=== PATIENT | male | born 1990 | race Caucasian/White ===

== ENCOUNTER 2020-09-14 09:35 | Emergency (ER) | payer MEDICAID ==
[~2020-09-14] VITALS: Ht 170.2 cm; Wt 68.0 kg
[2020-09-14 09:43] VITALS: BP 116/61
[2020-09-14] MEDS ORDERED: AMOXICILLIN 50500 MG PO (09:55)
[2020-09-14] MEDS ORDERED: IBUPROFEN 800800 MG PO (09:55)
== END 2020-09-14 10:05 | disposition home or self-care (01) ==
LOC: M.ERS 09:35
DX: K02.9 Dental caries, unspecified (principal); Z88.8 Allergy status to other drugs, medicaments and biological substances

== ENCOUNTER 2020-10-04 14:29 | Emergency (ER) | payer MEDICAID ==
[~2020-10-04] VITALS: Ht 188 cm; Wt 70.3 kg
[~2020-10-04 14:29] MED LIST: AMOXICILLIN 50500 MG PO; IBUPROFEN 800800 MG PO
[2020-10-04] MEDS ORDERED: NEURONTIN 400M400 M2 PO (14:37)
[2020-10-04] MEDS ORDERED: FLEXERIL PO (14:37)
[2020-10-04] MEDS ORDERED: ROXICODONE5 M2 PO (14:38)
[2020-10-04] MEDS ORDERED: CITRATE OF MAG296 M1 PO (14:40)
[2020-10-04 17:24] VITALS: BP 128/69
== END 2020-10-04 17:26 | disposition left against medical advice (07) ==
LOC: M.ERS 14:29
DX: K59.00 Constipation, unspecified (principal); Z98.890 Other specified postprocedural states; Z79.899 Other long term (current) drug therapy; Z88.8 Allergy status to other drugs, medicaments and biological substances

== ENCOUNTER 2021-05-12 08:43 | Emergency (ER) | payer MEDICAID ==
[~2021-05-12] VITALS: Ht 188 cm; Wt 63.5 kg
[~2021-05-12 08:43] MED LIST changes: +CITRATE OF MAG296 M1 PO; +FLEXERIL PO; +NEURONTIN 400M400 M2 PO; +ROXICODONE5 M2 PO
[2021-05-12] MEDS ORDERED: AMOXICILLIN 50500 MG PO (08:46)
[2021-05-12] MEDS ORDERED: IBUPROFEN 800800 MG PO (08:46)
[2021-05-12 08:58] VITALS: BP 123/78
== END 2021-05-12 08:59 | disposition home or self-care (01) ==
LOC: M.ERS 08:43
DX: K02.9 Dental caries, unspecified (principal); Z88.8 Allergy status to other drugs, medicaments and biological substances

== ENCOUNTER 2021-08-06 05:20 | Emergency (ER) | payer MEDICAID ==
[~2021-08-06] VITALS: Ht 185.4 cm; Wt 68.0 kg
[2021-08-06 05:21] VITALS: BP 133/78
[2021-08-06] MEDS ORDERED: IBUPROFEN 800800 M1 PO (05:51)
[2021-08-06] MEDS ORDERED: FLEXERIL PO (05:51)
== END 2021-08-06 06:00 | disposition home or self-care (01) ==
LOC: M.ERS 05:20
DX: M54.50 Low back pain, unspecified (principal); Z98.890 Other specified postprocedural states; Z88.1 Allergy status to other antibiotic agents; Z88.8 Allergy status to other drugs, medicaments and biological substances

== ENCOUNTER 2021-09-23 11:02 | Emergency (ER) | payer MEDICAID ==
[~2021-09-23] VITALS: Ht 188 cm; Wt 68.0 kg
[~2021-09-23 11:02] MED LIST changes: +IBUPROFEN 800800 M1 PO
[2021-09-23] MEDS ORDERED: FLEXERIL PO (11:04)
[2021-09-23 11:15] VITALS: BP 128/72
== END 2021-09-23 11:15 | disposition home or self-care (01) ==
LOC: M.ERS 11:02
DX: R68.84 Jaw pain (principal); Z98.890 Other specified postprocedural states; Z79.899 Other long term (current) drug therapy; Z88.8 Allergy status to other drugs, medicaments and biological substances; Z88.6 Allergy status to analgesic agent

== ENCOUNTER 2021-09-29 11:19 | Emergency (ER) | payer MEDICAID ==
[~2021-09-29] VITALS: Ht 172.7 cm; Wt 72.6 kg
[2021-09-29 11:28] VITALS: BP 125/75
== END 2021-09-29 11:28 | disposition home or self-care (01) ==
LOC: M.ERS 11:19
DX: M54.50 Low back pain, unspecified (principal); Z88.8 Allergy status to other drugs, medicaments and biological substances